=== PATIENT | female | born 1990 | race Caucasian/White ===

== ENCOUNTER 2018-10-28 00:47 | Emergency (ER) | payer BC, OTHER ==
[2018-10-28] MEDS: hydrOXYzine HCL 25 MG TAB PO (01:10)
[2018-10-28] MEDS: HYDROCORTISONE 1% 28.35 GM OINT TOP (01:10)
== END 2018-10-28 01:14 | disposition home or self-care (01) ==
LOC: FTE 00:47
DX: S80.862A Insect bite (nonvenomous), left lower leg, initial encounter (principal); W57.XXXA Bitten or stung by nonvenomous insect and other nonvenomous arthropods, initial encounter; Y92.9 Unspecified place or not applicable
CPT/HCPCS: 99283